=== PATIENT | male | born 1975 | race Caucasian/White ===

== ENCOUNTER 2016-11-17 06:38 | Day surgery (SDC) | payer BC ==
[~2016-11-17] VITALS: Ht 188 cm; Wt 95.0 kg
--- NOTE | ~2016-11-17 | OR ---
ADMIT: 11/17/2016 RM/LOC: [facility] MR#: [id number] [address] [address] HOLDEN MARLENY Newton [address] [place] [id number] Operative/Delivery Room Report SEX: M AGE: 41 : 1975 SURGERY DATE: 11/17/2016 SURGEON: Sabas Jackson MD PREOPERATIVE DIAGNOSIS: Right cervical adenopathy, FNA consistent with abnormal lymphoproliferative process. POSTOPERATIVE DIAGNOSIS: Right cervical adenopathy, FNA consistent with abnormal lymphoproliferative process. OPERATION: Excisional biopsy, deep cervical lymph nodes, right neck, levels 2/3. ANESTHESIA: General oral endotracheal. BLOOD LOSS: 30 mL. COMPLICATIONS: None. DRAINS: Caroline sutured to skin. DESCRIPTION OF PROCEDURE: With the patient in supine position, general endotracheal anesthesia, head was turned slightly to the left. The right neck was prepped with ChloraPrep, allowed 3 minutes to dry, and the patient was draped sterilely. An incision made following natural skin crease that had been marked preoperatively, carried through the skin, subcutaneous tissue, and platysma muscle. Skin flap was then elevated superiorly for approximately 1- cm identifying the anterior border of the sternomastoid muscle. Dissection was then continued medially anterior to the sternomastoid muscle, into the deep jugular region. The inferior and posterior aspect of the submandibular gland was identified, a lymph node was identified in the deep jugular chain at level 3 at the superior aspect of the level of the submandibular gland. A second large node was identified at level 2 and there were multiple smaller nodes along the same lymph node chain, these were excised using combination of ADMIT: 11/17/2016 RM/LOC: [facility] MR#: [id number] [address] [address] MARLENY HATCH [address] [place] [address] Operative/Delivery Room Report SEX: M AGE: 41 : 1975 blunt dissection and electrocautery. Afferent and efferent vessels treated by clamping and coagulation. The dissection did not involve the carotid sheath and there were no other abnormalities identified. Following the procedure, there was good hemostasis. The wound was irrigated with saline and cleaned with suctioning. The specimens were sent fresh to the pathologist for cytologic prep for lymphoma study. The wound was closed in layers over a Caroline drain using 3-0 chromic catgut to the deep tissues and platysmal layer, and interrupted simple 5-0 Prolene to the skin. The drain was sutured to the skin with Prolene and the operation was completed. The patient tolerated the procedure very well. He emerged from general anesthesia in the operating room, was extubated in the operating room, and transferred to the recovery room in good condition. Sabas Jackson MD/ regis JOB #: [id number] CC: Sabas Jackson, Attending Physician Giles Fulton, Family Physician
--- NOTE | 2016-11-19 09:07 | HP ---
ADMIT: 11/17/2016 RM/LOC: [facility] MR#: [id number] [facility] [address] [place] [id number] MARLENY HATCH [address] [place] [id number] History and Physical SEX: M AGE: 41 : 1975 DATE OF SERVICE: HISTORY OF PRESENT ILLNESS: Marleny is 41 years old. He is admitted at this time for excisional biopsy of lymph nodes in the right neck. They were initially identified on PET-CT scan. A fine-needle biopsy performed, 09/30/2016, shows atypical lymphoid proliferation suspicious of a lymphoproliferative process. The significance of this and further diagnostic options (excisional biopsy with lymphoma study) have been discussed and has been recommended. The rationale and the risks have been discussed, of which he is in good understanding, in acceptance of, and he is admitted at this time for general anesthesia. MEDICATIONS: Medications prior: 1. Mucinex. 2. Vitamins. 3. Fish oil. 4. Tamsulosin. 5. Metformin. 6. Buspirone. 7. Lexapro. 8. Zyprexa. 9. Effexor. 10.Onglyza. 11.Levemir. 12.Humalog. 13.Ondansetron. 14.Lortab. ALLERGIES: SULFA, PENICILLIN, CYMBALTA, SEROQUEL, CORTISONE. PAST MEDICAL HISTORY: Appendectomy, hospitalizations for psychiatric psychosis. REVIEW OF SYSTEMS: Positive for adult-onset diabetes. Does not have known lower respiratory, cardiovascular, GI, , or hematologic disorders. He has had 1 seizure in the past and no sequela. FAMILY HISTORY: Negative for anesthetic complications or coagulopathies. No family history of leukemia or lymphoma. SOCIAL HISTORY: He is an ex-cigarette smoker, quit in 1990. He does not use alcohol, nor does he use caffeine. PHYSICAL EXAMINATION: GENERAL: A 41-year-old, very cooperative, 6 feet 2 inches, 212 pounds. HEENT: Pupils are equal. Conjunctivae clear. Nose, mouth, and pharynx clear and symmetrical. No exudate or purulence. NECK: Palpable mass, right neck, at levels 2/3, mildly tender. No other neck masses or adenopathy palpable. Left neck, thyroid gland symmetrical without ADMIT: 11/17/2016 RM/LOC: [facility] MR#: [id number] [address] [address] [place] [address] History and Physical SEX: M AGE: 41 : 1975 nodules. LUNGS: Clear. No wheeze. HEART: Rhythm regular. EXTREMITIES: Normal. IMPRESSION: 1. Cervical adenopathy, right-sided, suspicious of lymphoproliferative process by fine needle aspirate biopsy. 2. Diabetes, adult onset. 3. History of psychosis. PLAN: Excisional biopsy, right cervical lymph node. Sabas Jackson MD/ regis JOB #: [id number] CC: Sabas Jackson, Attending Physician UNKNOWN, Family Physician
== END 2016-11-17 14:10 | disposition home or self-care (01) ==
LOC: SSS 06:38
PROC: 07B20ZX Excision of Left Neck Lymphatic, Open Approach, Diagnostic (ICD-10-PCS; principal; 2016-11-17)
DX: R59.0 Localized enlarged lymph nodes (principal); I10 Essential (primary) hypertension; E11.319 Type 2 diabetes mellitus with unspecified diabetic retinopathy without macular edema; Z88.2 Allergy status to sulfonamides; Z88.0 Allergy status to penicillin; Z88.8 Allergy status to other drugs, medicaments and biological substances; Z90.49 Acquired absence of other specified parts of digestive tract; Z79.899 Other long term (current) drug therapy; Z87.891 Personal history of nicotine dependence

== ENCOUNTER → 2017-02-11 | Outpatient (CLI) | payer BC | END | disposition home or self-care (01) | LOC: PTH.S 13:02 → RAD.S 14:00 | DX: R59.0 Localized enlarged lymph nodes (principal); E11.9 Type 2 diabetes mellitus without complications; R91.8 Other nonspecific abnormal finding of lung field; K76.0 Fatty (change of) liver, not elsewhere classified ==